=== PATIENT | female | born 1995 | race Caucasian/White ===

== ENCOUNTER 2022-04-09 13:37 | Emergency (ER) | payer MEDICAID ==
[~2022-04-09] VITALS: Ht 172.7 cm; Wt 70.8 kg
--- NOTE | 2022-04-09 14:10 | NUR ---
Patient discharged to home in stable condition. Written and verbal after care instructions given. Patient verbalizes understanding of instructions. Stressed follow up or return to ER for worsening s/s.
[2022-04-09 14:15] LABS: *URINE HCG, QUAL NEG (NEGATIVE)
[2022-04-11 01:06] LABS: *GC NAA Negative (Negative)
[2022-04-14 05:06] LABS: *TRIC.VAG. NAA Negative (Negative)
== END 2022-04-09 16:10 | disposition home or self-care (01) ==
LOC: ER 13:37
DX: S01.01XD Laceration without foreign body of scalp, subsequent encounter (principal); X58.XXXD Exposure to other specified factors, subsequent encounter; R03.0 Elevated blood-pressure reading, without diagnosis of hypertension
CPT/HCPCS: 84703; 87491; A4663